=== PATIENT | female | born 1990 | race Caucasian/White ===

== ENCOUNTER 2024-01-26 | Emergency (ER) | payer OTHER ==
[2024-01-26] MEDS ORDERED: ASPIRIN 81 MG CHEWABLE TABLET ONE (00:43)
[2024-01-26] MEDS ORDERED: DIAZEPAM 5 MG TABLET ONE (00:43)
[2024-01-26] MEDS ORDERED: NA CHLORIDE 0.9% 1,000 ML ONE (00:44)
[2024-01-26 01:13] LABS: Absolute Basophils 0.2 K/uL (0-0.5); Absolute Eosinophils 0.4 K/uL (0-0.5); Absolute Monocytes 1.3 K/uL (0.1-1.3); Absolute Neutrophil 10.1 K/uL (1.8-8.0); Basophils % 1.1 % (0-1.3); Eosinophils % 2.1 % (0-4.4); Hematocrit 40.7 % (36.0-45.0); Hemoglobin 13.2 g/dL (12.0-15.0); Lymphocytes % 36.6 % (15.3-44.8); MCH 28.3 pg (27.0-35.0); MCHC 32.3 g/dL (32.0-36.0); MCV 87.6 fL (80-100); MPV 8.2 fL (7.6-11.3); Monocytes % 6.8 % (3.3-12.3); Neutrophils % 53.4 % (41.7-73.7); Platelets 532 thou/uL (152-406); RBC Red Blood Cell Count 4.64 M/uL (3.86-4.86); Red Cell Distribution Width 14.7 % (12.1-15.2)
[2024-01-26 01:14] LABS: Specific Gravity 1.012 (1.005-1.030)
[2024-01-26 01:21] LABS: Specific Gravity 1.012 (1.005-1.030); Sqamous Epithelial <5 /HPF (None Seen); Urine Bacteria None Seen /HPF (<20); Urine Bilirubin NEGATIVE (Negative); Urine Blood Negative (Negative); Urine Clarity Turbid (Clear); Urine Color Light-Yellow (Yellow); Urine Culture Reflex Order NOT NEEDED; Urine Glucose NEGATIVE (Negative); Urine Ketones NEGATIVE (Negative); Urine Micro Reflex YN NO BILL MICROSCOPIC; Urine Nitrite NEGATIVE (Negative); Urine Protein NEGATIVE (Negative); Urine RBC <5 /HPF (None Seen); Urine Urobilinogen Normal (Normal); Urine WBC <5 /HPF (<5)
[2024-01-26 01:23] LABS: Protime INR 0.91
[2024-01-26 01:42] LABS: ALT/SGPT 17 U/L (13-56); Albumin 3.6 g/dL (3.4-5.0); Alkaline Phosphatase 55 U/L (45-117); BUN Blood Urea Nitrogen 14 mg/dL (7-18); Bicarbonate 32 mEq/L (21-32); Bilirubin Total 0.3 mg/dL (0.2-1.0); Globulin 3.5 g/dL (2.3-3.5); Glomerular Filtration Rate 122 ml/min (=/>90); Glucose Level 94 mg/dL (74-106); NT PRO-BNP 28 pg/mL (<125); Protein, Total 7.1 g/dL (6.4-8.2); Sodium Level 138 mEq/L (136-145)
[2024-01-26 01:46] LABS: AST/SGOT 12 U/L (15-37); Bilirubin Direct < 0.2 mg/dL (0-0.2); Bilirubin Indirect, Calculated 0.1 mg/dL (0.2-0.8); Magnesium 1.9 mg/dL (1.6-2.4); Troponin High Sensitivity < 3.0 pg/mL (<58.9)
--- NOTE | 2024-01-26 03:25 | ER ---
Nurse's Notes [facility] Name: Racheal Armenta Age: 33 yrs Sex: Female : 1990 Arrival Date: 01/26/2024 Time: 00:00 Bed 20 Private MD: Diagnosis: Facial numbness, blurred vision, balance disorder Presentation: 01/25 00:17 Chief complaint: Patient states: headache, blurry vision, left arm and left face lg3 tingling beginning 2229. Coronavirus screen: Client denies travel out of the [place] in the last 14 days. At this time, the client does not indicate any symptoms associated with coronavirus-19. Ebola Screen: No symptoms or risks identified at this time. Initial Sepsis Screen: Does the patient meet any 2 criteria? No. Patient's initial sepsis screen is negative. Does the patient have a suspected source of infection? No. Patient's initial sepsis screen is negative. Risk Assessment: Do you want to hurt yourself or someone else? Patient reports no desire to harm self or others. Onset of symptoms was January 26, 2024. 00:17 Method Of Arrival: Ambulatory lg3 00:17 Acuity: ROCKY 3 lg3 Triage Assessment: 00:19 General: Appears in no apparent distress. comfortable, Behavior is calm, cooperative. lg3 Pain: Complains of pain in head. EENT: No deficits noted. Reports blurred vision photophobia. Neuro: No deficits noted. Cha Agitation-Sedation Scale (RASS): 0 - Alert and Calm Level of Consciousness is awake, alert, obeys commands, Oriented to person, place, time, situation, Reports blurred vision headache numbness. Cardiovascular: No deficits noted. Denies chest pain, shortness of breath, Capillary refill < 3 seconds Clubbing of nail beds is absent JVD is absent Patient's skin is warm and dry. Respiratory: No deficits noted. Airway is patent Respiratory effort is even, unlabored, Respiratory pattern is regular, symmetrical. GI: No deficits noted. No signs and/or symptoms were reported involving the gastrointestinal system. Abdomen is round non-distended, obese. : No deficits noted. No signs and/or symptoms were reported regarding the genitourinary system. Derm: No deficits noted. No signs and/or symptoms reported regarding the dermatologic system. Skin is intact, is healthy with good turgor, Skin is dry, Skin is normal, Skin temperature is warm. Musculoskeletal: No deficits noted. No signs and/or symptoms reported regarding the musculoskeletal system. Circulation, motion, and sensation intact. Range of motion: intact in all extremities. 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 Flu vaccine is not up to date. - Infectious Disease History:: Denies. - Social history:: Smoking status: Patient denies any tobacco usage or history of. Patient/guardian denies using alcohol, street drugs. Screenin:24 [place] ED Fall Risk Assessment (Adult) History of falling in the last 3 months, lg3 including since admission No falls in past 3 months (0 pts) Confusion or Disorientation No (0 pts) Intoxicated or Sedated No (0 pts) Impaired Gait No (0 pts) Mobility Assist Device Used No (0 pt) Altered Elimination No (0 pt) Score/Fall Risk Level 0 - 2 = Low Risk Oriented to surroundings, Maintained a safe environment, Educated pt \T\ family on fall prevention, incl call for assistance when getting out of bed, Assessed \T\ reinforced patient's understanding of fall precautions. Abuse screen: Denies threats or abuse. Denies injuries from another. Nutritional screening: No deficits noted. Tuberculosis screening: No symptoms or risk factors identified. Assessment: 00:24 General: see triage assessment. lg3 Vital Signs: 00:17 BP 143 / 92; Pulse 82; Resp 17 S; Temp 97.8(O); Pulse Ox 98% on R/A; Weight 131.54 kg lg3 (R); Height 5 ft. 6 in. (R); 03:23 BP 148 / 101; Pulse 87; Resp 18; Temp 99; cp4 00:17 Body Mass Index 46.81 (131.54 kg, 167.64 cm) lg3 [place] Coma Score: 03:01 Eye Response: spontaneous(4). Motor Response: obeys commands(6). Verbal Response: sp4 oriented(5). Total: 15. NIH Stroke Scale Scores: 00:25 NIHSS Score: 0 lg3 03:01 NIHSS Score: 0 sp4 ED Course: 00:02 Patient arrived in ED. jj6 00:12 Kaleb Milligan MD is Attending Physician. sp4 00:19 Triage completed. lg3 00:19 Arm band placed on left wrist. lg3 00:24 Patient has correct armband on for positive identification. lg3 01:10 CT Head Brain wo Cont In Process Unspecified. EDMS 01:18 Inserted saline lock: 20 gauge in left antecubital area, using aseptic technique. Blood lg3 collected. 01:24 Nakia Mckenzie is Primary Nurse. cp4 02:03 XRAY Chest (1 view) In Process Unspecified. EDMS 03:23 Fabián Wade DO is Referral Physician. sp4 03:32 No provider procedures requiring assistance completed. intact, bleeding controlled, No cp4 redness/swelling at site. Pressure dressing applied. Administered Medications: 00:49 Drug: Aspirin PO Chewable Tablet 324 mg PO once; 81 mg tablets x 4 Route: PO; vc1 00:49 Drug: Diazepam PO 5 mg PO once Route: PO; vc1 01:18 Drug: NS 0.9% IV 1000 ml IV at 1 bolus Per protocol; 1000 mL bolus Route: IV; Rate: 1 lg3 bolus; Site: left antecubital; Outcome: 03:24 Discharge ordered by . sp4 03:32 Discharged to home ambulatory, cp4 03:32 Condition: stable 03:32 Discharge instructions given to patient, Instructed on discharge instructions, follow up and referral plans. Demonstrated understanding of instructions, follow-up care, 03:33 Patient left the ED. cp4 NIH Stroke Scale - NIH Stroke Score Date: 01/26/2024 Time: 00:25 Total Score = 0 10. Dysarthria (speech clarity - read or repeat words) - 0(Normal) 11. Extinction and Inattention (visual/tactile/auditory/spatial/personal) - 0(No abnormality) 1a. Level of Consciousness (LOC) - 0(Alert) 1b. Level of Consciousness (LOC) (Month \T\ Age) - 0(Both) 1c. LOC Commands (Open \T\ Closes Eyes/Tubing Machine Tender) - 0(Both) 2. Best Gaze (Lateral Gaze Paresis) - 0(Normal) 3. Visual Field Loss - 0(No visual loss) 4. Facial Palsy - 0(Normal) 5a. Left Arm: Motor (10-second hold) - 0(No drift) 5b. Right Arm: Motor (10-second hold) - 0(No drift) 6a. Left Leg: Motor (5-second hold - always test supine) - 0(No drift) 6b. Right Leg: Motor (5-second hold - always test supine) - 0(No drift) 7. Limb Ataxia (finger/nose \T\ heel/de anda - test with eyes open) - 0(Absent) 8. Sensory Loss (pinprick arms/legs/face) - 0(Normal) 9. Best Language: Aphasia (description/naming/reading) - 0(No aphasia) Initials: lg3 NIH Stroke Scale - NIH Stroke Score Date: 01/26/2024 Time: 03:01 Total Score = 0 10. Dysarthria (speech clarity - read or repeat words) - 0(Normal) 11. Extinction and Inattention (visual/tactile/auditory/spatial/personal) - 0(No abnormality) 1a. Level of Consciousness (LOC) - 0(Alert) 1b. Level of Consciousness (LOC) (Month \T\ Age) - 0(Both) 1c. LOC Commands (Open \T\ Closes Eyes/Tubing Machine Tender) - 0(Both) 2. Best Gaze (Lateral Gaze Paresis) - 0(Normal) 3. Visual Field Loss - 0(No visual loss) 4. Facial Palsy - 0(Normal) 5a. Left Arm: Motor (10-second hold) - 0(No drift) 5b. Right Arm: Motor (10-second hold) - 0(No drift) 6a. Left Leg: Motor (5-second hold - always test supine) - 0(No drift) 6b. Right Leg: Motor (5-second hold - always test supine) - 0(No drift) 7. Limb Ataxia (finger/nose \T\ heel/de anda - test with eyes open) - 0(Absent) 8. Sensory Loss (pinprick arms/legs/face) - 0(Normal) 9. Best Language: Aphasia (description/naming/reading) - 0(No aphasia) Initials: sp4 Signatures: Dispatcher [employer] Kayla Pollock RN RN lg3 Dora De La Torrej6 Brianna Alvarez RN RN vc1 Kaleb Milligan MD MD sp4 Nakia Mckenzie cp4
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
[2024-01-26 04:02] VITALS: BP 148/101; TEMP 99; O2SAT 98
--- NOTE | 2024-01-26 16:11 | RAD REPORT ---
EXAM DESCRIPTION: CT - Head Brain Wo Cont - 01/26/2024 6:55 am CLINICAL HISTORY: The patient is 33 years old and is Female; dizzy TECHNIQUE: Axial computed tomography images of the head/brain without intravenous contrast. Sagitt al and coronal reformatted images were created and reviewed. This CT exam was performed using one o r more of the following dose reduction techniques: automated exposure control, adjustment of the mA and/or kV according to patient size, and/or use of iterative reconstruction technique. COMPARISON: No relevant prior studies available. FINDINGS: BRAIN: Unremarkable. The carl-white matter differentiation is preserved . No hemorrhag e. No significant white matter disease. No edema. No extra-axial fluid collections. VENTRICLES: Unremarkable. No ventriculomegaly. BONES/JOINTS: No acute fracture. SOFT TISSUES: Unremarkable. SINUSES: Unremarkable as visualized. No acute sinusitis. MASTOID AIR CELLS: Unremarkable as visualized. No mastoid effusion. ORBITS: Unremarkable as visualized. IMPRESSION: No acute intracranial findings. Electronically signed by: Chacha Rinaldi MD 01/26/2024 02:12 AM CDT Due to temporary technical issues with the PACS/Fluency reporting system, reports are being signed by the in house radiologists without review as a courtesy to insure prompt reporting. The interpreting radiologist is fully responsible for the content of the report.
--- NOTE | 2024-01-26 16:22 | RAD REPORT ---
EXAM DESCRIPTION: RAD - Chest Single View - 01/26/2024 2:02 am CLINICAL HISTORY: Female, 33 years old, dizzy TECHNIQUE: 1 view COMPARISON: None. FINDINGS: Soft tissue attenuation and beam underpenetration limit assessment. SUPPORT DEVICES: None. LUNGS/PLEURA: No consolidation, pleural effusion, or pneumothorax. HEART/MEDIASTINUM: Normal size and configuration. OTHER: No acute osseous findings. Prior internal fixation of left ribs 6-7. Left rotator cuff hydroxy apatite deposition. IMPRESSION: No acute cardiopulmonary findings. Electronically signed by: Gabriel Dukes MD 01/26/2024 03:25 AM CDT RP Due to temporary technical issues with the PACS/Fluency reporting system, reports are being signed by the in house radiologists without review as a courtesy to insure prompt reporting. The interpreting radiologist is fully responsible for the content of the report.
--- NOTE | 2024-01-27 14:08 | EKG ---
Test Date: 2024-01-26 Test Time: 01:30:56 Boom Stick Man: GIORGIO MEASUREMENT RESULTS: Intervals: Rate: 65 WY: 128 QRSD: 88 QT: 414 QTc: 430 [place]: P: 45 WY: 128 QRS: 74 T: 18 INTERPRETIVE STATEMENTS: Normal sinus rhythm Normal ECG No previous ECG available for comparison Electronically Signed On 01-27-24 14:05:07 CDT by Vlad Martin
== END 2024-01-26 03:33 | disposition home or self-care (01) ==
LOC: ER
DX: R20.0 Anesthesia of skin (principal); H53.8 Other visual disturbances; R26.89 Other abnormalities of gait and mobility; I10 Essential (primary) hypertension; E03.9 Hypothyroidism, unspecified; F41.9 Anxiety disorder, unspecified
CPT/HCPCS: 93005; 85025; 81001; 80048; 36415; 83735; 81025; 85610; 80076; 84443; 84484; 84439; 83880; 70450; 71045; 99285; J7030

== ENCOUNTER 2024-04-20 10:26 | Emergency (ER) | payer OTHER ==
[2024-04-20] MEDS ORDERED: ACETAMINOPHEN 500 MG TAB ONE (12:27)
--- NOTE | 2024-04-20 12:31 | RAD REPORT ---
EXAM DESCRIPTION: US - UPPER EXTREMITY VENOUS UNILATE - 04/20/2024 12:05 pm CLINICAL HISTORY: Pain COMPARISON: None. TECHNIQUE: Real-time sonographic evaluation of the right upper extremity deep venous system was perf ormed. FINDINGS: Normal compressibility, flow augmentation, phasic flow and spontaneous flow is identified in the right upper extremity deep venous system. No intraluminal filling defects seen. IMPRESSION: No DVT in the right upper extremity.
--- NOTE | 2024-04-20 12:32 | RAD REPORT ---
EXAM DESCRIPTION: Shoulder Right 2 View - 04/20/2024 12:22 pm CLINICAL HISTORY: PAIN COMPARISON: No comparisons TECHNIQUE: Internal and external rotation views of the right shoulder were obtained. FINDINGS: There is no fracture or dislocation. AC joint is normal in appearance. Foci of mineralizat ion adjacent to the greater tuberosity posteriorly, may reflect sequelae of calcific tendinitis.. No acute or suspicious findings. IMPRESSION: No acute osseous abnormality. Foci of mineralization suggesting sequelae of calcific ten dinitis.
--- NOTE | 2024-04-20 12:33 | RAD REPORT ---
EXAM DESCRIPTION: RAD - Elbow Right 3 View - 04/20/2024 12:22 pm CLINICAL HISTORY: PAIN COMPARISON: No comparisons TECHNIQUE: Right elbow, 3 views. FINDINGS: No fracture is identified. No elevated posterior fat pad to suggest an effusion. There is no dislocation or periosteal reaction noted. No foreign body or other soft tissue abnormalit y. IMPRESSION: Negative right elbow examination.
--- NOTE | 2024-04-20 12:42 | ER ---
Nurse's Notes [facility] Name: Racheal Armenta Age: 33 yrs Sex: Female : 1990 Arrival Date: 04/20/2024 Time: : Bed DX2 Private MD: Diagnosis: Pain in right shoulder;Pain in right elbow Presentation: 04/20 10:47 Chief complaint: Patient states: past two weeks has had joint swelling and pain in iw shoulders, arms and feet, five days ago my right shoulder was hurting bad, now I can barely hold my arm up , yesterday the pain was severe. Coronavirus screen: At this time, the client does not indicate any symptoms associated with coronavirus-19. Ebola Screen: No symptoms or risks identified at this time. Initial Sepsis Screen: Does the patient meet any 2 criteria? No. Patient's initial sepsis screen is negative. Does the patient have a suspected source of infection? No. Patient's initial sepsis screen is negative. Risk Assessment: Do you want to hurt yourself or someone else? Patient reports no desire to harm self or others. 10:47 Method Of Arrival: Ambulatory iw 10:47 Acuity: ROCKY 3 iw 10:48 Onset of symptoms was April 04, 2024. iw Triage Assessment: 13:02 General: Appears uncomfortable. 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 - Infectious Disease History:: Denies. - Social history:: Smoking status: unknown. Screenin:33 [facility] ED Fall Risk Assessment (Adult) History of falling in the last 3 months, jl7 including since admission No falls in past 3 months (0 pts) Confusion or Disorientation No (0 pts) Intoxicated or Sedated No (0 pts) Impaired Gait No (0 pts) Mobility Assist Device Used No (0 pt) Altered Elimination No (0 pt) Score/Fall Risk Level 0 - 2 = Low Risk Oriented to surroundings, Maintained a safe environment. Abuse screen: Denies threats or abuse. Denies injuries from another. Nutritional screening: No deficits noted. Tuberculosis screening: No symptoms or risk factors identified. Assessment: 12:33 General: Appears in no apparent distress. uncomfortable, Behavior is calm, cooperative, jl7 appropriate for age. Pain: Complains of pain in right scapular area Pain radiates to right arm Pain currently is 8 out of 10 on a pain scale. Neuro: Level of Consciousness is awake, alert, obeys commands, Oriented to person, place, time, situation. Cardiovascular: Patient's skin is warm and dry. Respiratory: Airway is patent Respiratory effort is even, unlabored, Respiratory pattern is regular, symmetrical. Derm: Skin is pink, warm \T\ dry. Musculoskeletal: Swelling absent. Vital Signs: 10:48 BP 149 / 92; Pulse 72; Resp 16; Temp 97; Pulse Ox 99% ; Weight 131.54 kg; Height 5 ft. iw 7 in. ; Pain 8/10; 10:48 Body Mass Index 45.42 (131.54 kg, 170.18 cm) iw 10:48 Pain Scale: Adult iw ED Course: 10:28 Patient arrived in ED. mg5 10:29 David Sanz PA is PHCP. cp 10:29 Steven Chavez MD is Attending Physician. cp 10:48 Triage completed. iw 10:48 Arm band placed on. iw 12:07 UPPER EXTREMITY VENOUS UNILATE In Process Unspecified. EDMS 12:16 X-ray completed. Patient tolerated procedure well. [facility], ambulatory. mh1 12:24 XRAY Shoulder RIGHT 2 view In Process Unspecified. EDMS 12:24 XRAY Elbow RIGHT 3 view In Process Unspecified. EDMS 12:33 Patient has correct armband on for positive identification. Provided Education on: jl7 Tests. 13:02 No provider procedures requiring assistance completed. Patient did not have IV access ap3 during this emergency room visit. Administered Medications: 12:32 Drug: Acetaminophen PO 1000 mg PO once Route: PO; jl7 13:03 Follow up: Response: No adverse reaction ap3 Medication: 12:33 VIS not applicable for this client. jl7 Outcome: 12:41 Discharge ordered by MD. cp 13:02 Discharged to home ambulatory, ap3 13:02 Condition: good 13:02 Discharge instructions given to patient, Instructed on discharge instructions, follow up and referral plans. medication usage, Demonstrated understanding of instructions, follow-up care, medications, Prescriptions given X 2, 13:03 Patient left the ED. ap3 Signatures: Dispatcher [employer] EDMS Alicia Anderson 1 Devorah Liz, RN RN iw David Sanz PA PA cp Leal, Jahala, RN RN jl7 Rosenda Wilson RN RN ap3 Valeria Covarrubias 5
--- NOTE | 2024-04-20 12:42 | EDPHYS ---
Physician Documentation [facility] Name: Racheal Armenta Age: 33 yrs Sex: Female : 1990 Arrival Date: 04/20/2024 Time: : Bed DX2 Private MD: ED Physician Steven Chavez HPI: 04/20 11:00 This 33 yrs old Female presents to ER via Ambulatory with complaints of Arm Pain. cp 11:00 The patient or guardian complains of pain, that is acute. The complaints affect the cp right scapular area and right shoulder and right elbow. Context: resulted from unknown cause. 11:00 Onset: The symptoms/episode began/occurred 5 day(s) ago, and became worse yesterday. cp 11:00 Treatment prior to arrival includes: no previous treatment. Associated signs and cp symptoms: Pertinent negatives: fever, chest pain. Patient reports intermittent pain to multiple joints over past 2 weeks with left knee appearing swollen and painful recently. left knee pain and swelling has markedly improved. denies any injury. 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 - Infectious Disease History:: Denies. - Social history:: Smoking status: unknown. ROS: 11:05 Constitutional: Negative for body aches, chills, fever, poor PO intake, weight loss, cp 11:05 Eyes: Negative for injury, pain, redness, and discharge, cp 11:05 ENT: Negative for drainage from ear(s), ear pain, sore throat, difficulty swallowing, difficulty handling secretions, 11:05 Cardiovascular: Negative for chest pain, edema, palpitations, 11:05 Respiratory: Negative for cough, shortness of breath, wheezing, 11:05 Abdomen/GI: Negative for abdominal pain, nausea, vomiting, and diarrhea, 11:05 Back: Negative for injury or acute deformity, decreased range of motion, 11:05 MS/extremity: Positive for pain, of the right scapular area and right shoulder and right elbow, Negative for injury or acute deformity, decreased range of motion, paresthesias, 11:05 Neuro: Negative for altered mental status, dizziness, headache, numbness, weakness, 11:05 All other systems are negative, Exam: 11:15 Constitutional: The patient appears in no acute distress, alert, awake, cp non-diaphoretic, non-toxic, well developed, well nourished, obese, 11:15 Head/Face: Normocephalic, atraumatic. cp 11:15 Eyes: Periorbital structures: appear normal, Conjunctiva: normal, no exudate, no injection, Sclera: no appreciated abnormality, Lids and lashes: appear normal, bilaterally, 11:15 ENT: External ear(s): are unremarkable, Nose: is normal, Mouth: Lips: moist, Oral mucosa: moist, Posterior pharynx: Airway: no evidence of obstruction, patent, 11:15 Neck: ROM/movement: is normal, is supple, without pain, no range of motions limitations, 11:15 Chest/axilla: Inspection: normal, 11:15 Cardiovascular: Rate: normal, Rhythm: regular, Pulses: Pulses are 2+ in right radial artery. 11:15 Respiratory: the patient does not display signs of respiratory distress, Respirations: normal, no use of accessory muscles, no retractions, labored breathing, is not present, Breath sounds: are clear throughout, no decreased breath sounds, no stridor, no wheezing, 11:15 Abdomen/GI: Exam negative for discomfort, distension, guarding, 11:15 Back: pain, that is moderate, of the right trapezius and right scapular area, 11:15 Musculoskeletal/extremity: Extremities: noted in the right shoulder: lateral side tenderness and pain, pain with passive ROM, There is no evidence of decreased ROM, deformity, noted in the right elbow: pain, tenderness, pain with passive ROM, no evidence of decreased ROM, deformity, the right hand and right arm Sensation intact. 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 Vital Signs: 10:48 BP 149 / 92; Pulse 72; Resp 16; Temp 97; Pulse Ox 99% ; Weight 131.54 kg; Height 5 ft. iw 7 in. ; Pain 8/10; 10:48 Body Mass Index 45.42 (131.54 kg, 170.18 cm) iw 10:48 Pain Scale: Adult iw MDM: 10:53 Patient medically screened. cp 12:30 Differential diagnosis: dislocation, tendonitis, sprain, fracture. cp 12:40 Data reviewed: vital signs, nurses notes, radiologic studies, plain films, ultrasound, cp and as a result, I will discharge patient. 12:40 I considered the following discharge prescriptions or medication management in the emergency department Medications were administered in the Emergency Department. See MAR. Care significantly affected by the following chronic conditions: Hypertension. Counseling: I had a detailed discussion with the patient and/or guardian regarding the historical points, exam findings, and any diagnostic results supporting the discharge/admit diagnosis, radiology results, the need for outpatient follow up, a family practitioner, to return to the emergency department if symptoms worsen or persist or if there are any questions or concerns that arise at home. Response to treatment: the patient's symptoms have mildly improved after treatment, and as a result, I will discharge patient. 04/20 10:54 Order name: XRAY Shoulder RIGHT 2 view; Complete Time: 12:36 cp 04/20 10:54 Order name: XRAY Elbow RIGHT 3 view; Complete Time: 12:36 cp 04/20 12:36 Interpretation: Report reviewed. cp 04/20 11:29 Order name: UPPER EXTREMITY VENOUS UNILATE; Complete Time: 12:36 EDMS Administered Medications: 12:32 Drug: Acetaminophen PO 1000 mg PO once Route: PO; jl7 13:03 Follow up: Response: No adverse reaction ap3 Disposition Summary: 04/20/24 12:41 Discharge Ordered Notes: Location: Home cp Problem: new cp Symptoms: have improved cp Condition: Stable cp Diagnosis - Pain in right shoulder cp - Pain in right elbow cp Followup: cp - With: Private Physician - When: 1 week - Reason: Recheck today's complaints Discharge Instructions: - Discharge Summary Sheet cp - Joint Pain cp - Shoulder Pain cp - Shoulder Range of Motion Exercises cp - How to Use Cold Therapy cp - Heat Therapy cp Forms: - Medication Reconciliation Form cp - Antibiotic Education cp - Prescription Opioid Use cp - Patient Portal Instructions cp - Leadership Thank You Letter cp Prescriptions: - Medrol (Tomás) 4 mg Oral Tablets, Dose Pack - take 1 tablet ORAL route as directed - follow package instructions; 1 packet; cp Refills: 0, Product Selection Permitted - methocarbamol 750 mg Oral tablet - take 1 tablet ORAL route 3 times per day; 30 tablet; Refills: 0, Product cp Selection Permitted Addendum: 04/24/2024 07:43 I was immediately available for consultation during this patient's visit. I did not e c2 personally see the patient or discuss the patient with the ANASTASIIA. . Signatures: Dispatcher [employer] Devorah Ferrer, RN RN David Phelps PA PA cp Leal, Jahala, RN RN jl7 Rosenda Wilson RN RN ap3 Steven Chavez MD MD ec2 Corrections: (The following items were deleted from the chart) 04/20 10:54 10:54 Shoulder Right 2 View+RAD.RAD.[email or web address] ordered. EDMS EDMS 10:55 10:55 Elbow Right 3 View+RAD.RAD.BRZ ordered. EDMS EDMS 10:55 10:55 Extremity Venous Uni Ltd+US.RAD.BRZ ordered. EDMS EDMS
[2024-04-20 13:11] VITALS: BP 149/92; TEMP 97; O2SAT 99
== END 2024-04-20 13:03 | disposition home or self-care (01) ==
LOC: ER 10:26
DX: M25.511 Pain in right shoulder (principal); M25.521 Pain in right elbow
CPT/HCPCS: 93971; 99283